=== PATIENT | male | born 1995 | race Hispanic/Latino ===

== ENCOUNTER 2022-10-21 10:48 | Emergency (ER) | payer OTHER ==
[~2022-10-21] VITALS: Ht 162.6 cm; Wt 81.5 kg
[2022-10-21 10:49] VITALS: BP 134/88; TEMP 98.3; O2SAT 99
[2022-10-21] MEDS ORDERED: AMOX875T2 PO (11:52)
== END 2022-10-21 12:13 | disposition home or self-care (01) ==
LOC: M ED 10:48
DX: L03.012 Cellulitis of left finger (principal)

== ENCOUNTER 2023-02-04 11:33 | Emergency (ER) | payer OTHER ==
[~2023-02-04] VITALS: Ht 162.6 cm; Wt 83.2 kg
[~2023-02-04 11:33] MED LIST: AMOX875T2 PO
[2023-02-04] MEDS ORDERED: ACETAMINOPHEN TAB 650MG DOSE (2X325MG) PO ONE (15:15)
[2023-02-04] MEDS ORDERED: IBUPROFEN 800 MG TAB PO ONE (15:15)
[2023-02-04] MEDS ORDERED: NAPR-837 PO (15:51)
[2023-02-04] MEDS ORDERED: ASPE4PAD TOP (15:51)
[2023-02-04] MEDS ORDERED: METH-1165 PO (15:51)
[2023-02-04 15:54] VITALS: BP 123/82; TEMP 98.2; O2SAT 99
== END 2023-02-04 15:59 | disposition home or self-care (01) ==
LOC: M ED 11:33
DX: M54.50 Low back pain, unspecified (principal); M62.830 Muscle spasm of back